=== PATIENT | female | born 1975 | race Caucasian/White ===

== ENCOUNTER 2016-08-03 19:34 | Emergency (ER) | payer BC ==
[2016-08-03] MEDS ORDERED: OXYCODONE-ACETAMINOPHEN 5-325 MG TABLET PO ONE (19:48)
[2016-08-03] MEDS ORDERED: ONDANSETRON 4 MG TAB.RAPDIS PO ONE (19:48)
--- NOTE | 2016-08-03 19:53 | ER Document Report ---
ED Medical Screen (RME) - General Stated Complaint: FALL FACIAL AND ARM INJURY Notes: Patient states she missed the bottom step falling into chain-link fence. Hit left side of face and left arm. Most of the pain is confined to the upper left arm. Denies loss of consciousness. Complains of nausea, no vomiting and vision is normal. I have greeted and performed a rapid initial assessment of this patient. A comprehensive ED assessment and evaluation of the patient, analysis of test results and completion of the medical decision making process will be conducted by additional ED providers. TRAVEL OUTSIDE OF THE [place] IN LAST 30 DAYS: No - Related Data Allergies/Adverse Reactions: No Known Allergies Allergy (Verified 10/25/15 14:45) Past Medical History Pulmonary Medical History: Reports: Hx Asthma - Immunizations Hx Diphtheria, Pertussis, Tetanus Vaccination: Yes - already received Physical Exam - Vital signs Vitals: Temp Pulse Resp BP Pulse Ox 97.7 F 106 H 20 141/104 H 100 08/03/16 19:40 08/03/16 19:40 08/03/16 19:40 08/03/16 19:40 08/03/16 19:40 - Notes Notes: Patient unable to move left shoulder and upper arm. Nontender lower arm, neurovascular and sensation intact. Course - Vital Signs Vital signs: Temp Pulse Resp BP Pulse Ox 97.7 F 106 H 20 141/104 H 100 08/03/16 19:40 08/03/16 19:40 08/03/16 19:40 08/03/16 19:40 08/03/16 19:40
[2016-08-03] MEDS ORDERED: HYDROMORPHONE HCL INJ/PF 2 MG/ML AMPULE IM ONE (22:13)
--- NOTE | 2016-08-03 22:22 | ER Document Report ---
ED Fall - General Chief Complaint: Fall Injury Stated Complaint: FALL FACIAL AND ARM INJURY Time seen by provider: 22:05 Notes: Patient is a 41-year-old female that comes emergency department for chief complaint of injury to the left arm and shoulder and a bruise to the left side of her face, this occurred just prior to arrival when she slipped off of the last step of a bleacher and fell into a chain link fence, her face breast defense, her arm hit the pole. She states currently her only pain is in her left mid arm. She denies numbness, she denies neck pain, she denies visual changes or headache, she denies loss of consciousness. She denies blood thinner use. TRAVEL OUTSIDE OF THE [place] IN LAST 30 DAYS: No - Related data Allergies/Adverse Reactions: No Known Allergies Allergy (Verified 10/25/15 14:45) Past Medical History - General Information source: Patient - Social History Smoking Status: Never Smoker Chew tobacco use (# tins/day): No Frequency of alcohol use: Occasional Drug Abuse: None Lives with: Family Family History: Reviewed & Not Pertinent Patient has suicidal ideation: No Patient has homicidal ideation: No Pulmonary Medical History: Reports: Hx Asthma Renal/ Medical History: Denies: Hx Peritoneal Dialysis Surgical Hx: Negative - Immunizations Hx Diphtheria, Pertussis, Tetanus Vaccination: Yes - already received Review of Systems - Review of Systems Constitutional: No symptoms reported EENT: No symptoms reported Cardiovascular: No symptoms reported Respiratory: No symptoms reported Gastrointestinal: No symptoms reported Genitourinary: No symptoms reported Female Genitourinary: No symptoms reported Musculoskeletal: See HPI Skin: No symptoms reported Hematologic/Lymphatic: No symptoms reported Neurological/Psychological: No symptoms reported Physical Exam - Vital signs Vitals: Temp Pulse Resp BP Pulse Ox 97.7 F 106 H 20 141/104 H 100 08/03/16 19:40 08/03/16 19:40 08/03/16 19:40 08/03/16 19:40 08/03/16 19:40 Interpretation: Normal - General General appearance: Appears well, Alert In distress: None - HEENT Head: Normocephalic, Ecchymosis - Very small ecchymosis over the left lateral part of the face adjacent to the left eye, no orbital swelling or eye involvement, no other abnormalities Eyes: Normal Conjunctiva: Normal Extraocular movements intact: Yes Eyelashes: Normal Pupils: PERRL - Respiratory Respiratory status: No respiratory distress Chest status: Nontender Breath sounds: Normal Chest palpation: Normal - Cardiovascular Rhythm: Regular Heart sounds: Normal auscultation Murmur: No - Abdominal Inspection: Normal Distension: No distension Bowel sounds: Normal Tenderness: Nontender Organomegaly: No organomegaly - Back Back: Normal, Nontender - Extremities General upper extremity: Other - Patient with tenderness and swelling in the mid to lower aspect of the humerus on the left side, elbow, shoulder, wrist, hand exam unremarkable, normal distal neurovascular exam General lower extremity: Normal inspection, Nontender, Normal color, Normal ROM , Normal temperature, Normal weight bearing. No: German's sign - Neurological Neuro grossly intact: Yes Cognition: Normal Orientation: AAOx4 Rodrigue Coma Scale Eye Opening: Spontaneous Rodrigue Coma Scale Verbal: Oriented [place] Coma Scale Motor: Obeys Commands Rodrigue Coma Scale Total: 15 Speech: Normal Motor strength normal: LUE, RUE, LLE, RLE Sensory: Normal - Psychological Associated symptoms: Normal affect, Normal mood - Skin Skin Temperature: Warm Skin Moisture: Dry Skin Color: Normal Course - Re-evaluation Re-evalutation: X-ray imaging showing distal humeral laceration with minimal angulation and displacement. Patient with normal distal neurovascular exam. Neck, neurological, back exam is unremarkable. Patient with a tiny contusion of the face, normal eye exam. Discussed with Dr. Mckinley. Patient will be placed in a sling, provided with pain medication, refer to orthopedics, discussed return precautions. Patient states understanding and agreement with plan. - Vital Signs Vital signs: Temp Pulse Resp BP Pulse Ox 97.7 F 106 H 18 141/97 H 98 08/03/16 19:40 08/03/16 19:40 08/03/16 23:53 08/03/16 23:53 08/03/16 23:53 - Diagnostic Test Radiology reviewed: Image reviewed, Reports reviewed Procedures - Immobilization left shoulder sling Pre-Proc Neuro Vasc Exam: Normal Immobilizer type: Sling Performed by: RN Post-Proc Neuro Vasc Exam: Normal Alignment checked and good: Yes Discharge - Discharge Clinical Impression: Fall Qualifiers: Encounter type: initial encounter Qualified Code(s): W19.XXXA - Unspecified fall, initial encounter Facial contusion Qualifiers: Encounter type: initial encounter Qualified Code(s): S00.83XA - Contusion of other part of head, initial encounter Left humeral fracture Qualifiers: Encounter type: initial encounter Humerus Location: distal Fracture type: closed Fracture morphology: other fracture Fracture alignment: nondisplaced Qualified Code(s): S42.495A - Other nondisplaced fracture of lower end of left humerus, initial encounter for closed fracture Condition: Stable Disposition: HOME, SELF-CARE Additional Instructions: Imaging shows a fracture of the long bone in your arm called the humerus. Wear the sling, take pain medication, apply ice to the painful area. Follow-up closely with orthopedics for additional management. Return the emergency department for any concerning or worsening symptoms including severe swelling or pain. Prescriptions: Oxycodone HCl/Acetaminophen [Percocet 5-325 mg Tablet] 1 - 2 tab PO Q4H PRN #25 tablet PRN Reason: Referrals: EFRAIN ARCOS MD [ACTIVE STAFF] - Follow up in 3-5 days
[2016-08-04 00:21] VITALS: BP 141/97
== END 2016-08-03 23:59 | disposition home or self-care (01) ==
LOC: ER 19:34
DX: S42.495A Other nondisplaced fracture of lower end of left humerus, initial encounter for closed fracture (principal); S09.93XA Unspecified injury of face, initial encounter; S49.92XA Unspecified injury of left shoulder and upper arm, initial encounter; W10.8XXA Fall (on) (from) other stairs and steps, initial encounter
CPT/HCPCS: 99284; 96372; 73060; 73030; S0119; J1170